=== PATIENT | male | born 1985 | race Caucasian/White ===

== ENCOUNTER 2021-12-16 12:31 | Emergency (ER) | payer SELFPAY ==
[~2021-12-16] VITALS: Ht 182.9 cm; Wt 77.3 kg
[2021-12-16 12:39] VITALS: TEMP 98.8
[2021-12-16] MEDS ORDERED: DOXYCYCLINE HY100 MG PO (14:55)
[2021-12-16 15:25] VITALS: BP 102/72; PULSE 86
== END 2021-12-16 15:25 | disposition home or self-care (01) ==
LOC: COL.ER 12:31
DX: S51.811A Laceration without foreign body of right forearm, initial encounter (principal); F17.290 Nicotine dependence, other tobacco product, uncomplicated; Z88.0 Allergy status to penicillin; W54.0XXA Bitten by dog, initial encounter